=== PATIENT | female | born 1960 | race African-American/Black ===

== ENCOUNTER 2016-07-31 20:03 | Emergency (ER) | payer SELFPAY ==
[2016-07-31 20:21] VITALS: BMI 33.0
--- NOTE | 2016-07-31 22:20 | DR.GENAD ---
HPI - PCP Primary Care Physician: nfd - Complaint/Symptoms Chief Complaint Doctors Comments: Patient presents with c/o feet swelling, noticed today. She works at [employer] denies a history of CHF or pulmonary edema. Denies use of cigarettes. Chief Complaint:: feet started swelling noticed it today - Source History Provided: Patient - Mode of Arrival Mode of Arrival: Ambulatory - Timing Onset of Chief Complaint: 07/31/16 PMH - PMH Past Medical History: Yes Past Medical History: Arthritis, Migraines, Headaches Past Surgical History: Yes Surgical History: Hysterectomy Past Surgical History Comment: exploratory surgery on breast - Family History History of Family Medical Conditions: No (unknown) Family Medical History: Cancer - Social History Does patient currently use any type of tobacco product: No Have you used tobacco products in the last 12 months: No Type of Tobacco Use: None Does any household member use tobacco: No Alcohol Use: Rarely Do you use any recreational Drugs:: No Lives With: Alone Lives Where: Home - infectious screening In the last 2 months have you had wt loss of >10#?: NO Have you had fever, night sweats or hemotysis?: No Have you traveled outside the country in the last 6 months?: No Isolation: Standard ROS - Review of Systems Constitutional: No Symptoms Reported Eyes: No Symptoms Reported ENTM: No Symptoms Reported Respiratoy: No Symptoms Reported Cardiovascular: No Symptoms Reported Gastrointestinal/Abdominal: No Symptoms Reported Genitourinary: No Symptoms Reported Neurological: No Symptoms Reported Musculoskeletal: No Symptoms Reported, Foot (jordy,a) Integumentary: No Symptoms Reported Hematologic/Lymphatic: No Symptoms Reported Endocrine: No Symptoms Reported Psychiatric: No Symptoms Reported All Other Systems: Reviewed and Negative PE - Vital Signs Vitals: Temperature 98.5 F Pulse Rate 73 Respiratory Rate 20 Blood Pressure 133/81 O2 Sat by Pulse Oximetry 99 - General Limitations: No Limitations General Appearance: Alert, In No Apparent Distress - Head Head Exam: Normal Inspection, Atraumatic - Eyes Eye exam: Normal Appearance, PERRL, EOMI - ENT ENT Exam: Normal Exam External Ear Exam: Normal External Inspection TM/Canal Exam: Bilateral Normal Nose Exam: Normal Nose Exam Mouth Exam: Normal Inspection Throat Exam: Normal Inspection - Neck Neck Exam: Normal Inspection - Chest Chest Inspection: Normal Inspection - Respiratory Respiratory Exam: Normal Lung Sounds Bilat Respiratory Exam: Bilateral Clear to Auscultation - Cardiovascular Cardiovascular Exam: Regular Rate, Normal Rhythm - Abdominal Exam Abdominal Exam: Normal Inspection Abdominal Tenderness: negative: RUQ, RLQ, LUQ, LLQ, Epigastrium, Suprapubic, Diffuse, Mild, Moderate, Severe, Other - Extremities Extremities Exam: Edema (1+ lower extremity) - Back Back Exam: Normal Inspection, Full ROM - Neurologic Neurological Exam: Alert, Oriented X3, CN II-XII Intact - Skin Skin Exam: Warm, Dry, Intact ROR - Labs Reviewed Result Diagrams: 07/31/16 22:07/31/16 Laboratory: WBC 4.8 X10^3/uL (3.6-10.0) 07/31/16: RBC 4.30 X10^6/uL (3.5-5.4) 07/31/16 Hgb 12.3 g/dL (12.0-16.0) 07/31/16: Hct 36.7 % (36.0-47.0) 07/31/16: MCV 85.4 fL (80.0-100.0) 07/31/16: MCH 28.6 pg (27.0-34.0) 07/31/16: MCHC 33.5 g/dL (33.0-35.0) 07/31/16 RDW 13.2 % (11.6-16.5) 07/31/16 Plt Count 256 X10^3/uL (150.0-450.0) 07/31/16 MPV 8.4 fL (7.4-11.0) 07/31/16: Neut % 49.2 % (42.0-75.0) 07/31/16: Lymph % 38.8 % (21.0-51.0) 07/31/16: Wise % 9.6 % (0.0-13.0) 07/31/16 Eos % 1.5 % (0.9-2.9) 07/31/16 Baso % 0.9 % (0.2-1.0) 07/31/16 Neut # 2.4 x10^3/uL (2.2-4.8) 07/31/16: Lymph # 1.9 X10^3/uL (1.3-2.9) 07/31/16: Wise # 0.5 x10^3/uL (0.3-0.8) 07/31/16 22: Eos # 0.1 x10^3/uL (0.0-0.2) 07/31/16: Baso # 0.0 X10^3/uL (0.0-0.1) 07/31/16: Absolute Nucleated RBC 0.0 /100WBC 07/31/16 22: Sodium 148 mmol/L (136-145) H 07/31/16: Corrected Sodium TNP 07/31/16: Potassium 3.4 mmol/L (3.5-5.1) L 07/31/16: Chloride 110 mmol/L (98-107) H 07/31/16: Carbon Dioxide 29.0 mmol/L (21-32) 07/31/16: BUN 14 mg/dL (7-18) 07/31/16: Creatinine 0.77 mg/dL (0.55-1.02) 07/31/16: Est GFR (MDRD) Af Amer > 60 (>60) 07/31/16: Est GFR (MDRD) Non-Af > 60 (>60) 07/31/16: Glucose 95 mg/dL (65-99) 07/31/16: Calcium 8.9 mg/dL (8.5-10.1) 07/31/16: Corrected Calcium TNP 07/31/16: Total Bilirubin 0.20 mg/dL (0.2-1.0) 07/31/16: AST 13 Units/L (15-37) L 07/31/16: ALT 20 Units/L (12-78) 07/31/16: Alkaline Phosphatase 59 Units/L (46-116) 07/31/16: Total Protein 7.4 g/dL (6.4-8.2) 07/31/16: Albumin 3.5 g/dL (3.4-5.0) 07/31/16 22:27 Globulin 3.9 g/dL (2.5-4.5) 07/31/16 22:27 Albumin/Globulin Ratio 0.9 Ratio (1.1-2.1) L 07/31/16 22:27 - XRAY XRAY Interpreted by: Radiologist (The lungs are clear and the lung volumes are within normal limits. No pleural effusion or pneumothorax. The cardiac silhouette is mildly enlarged and there is central vascular congestion. The regional skeleton is intact. Impression: There is mild cardiomegaly and central vascular congestion.) - Diagnosis Discharge Problem: Mild cardiomegaly CHF (congestive heart failure) Qualifiers: Congestive heart failure type: unspecified congestive heart failure type Congestive heart failure chronicity: acute Qualified Code(s): I50.9 - Heart failure, unspecified - Discharge Plan Condition: Stable - Follow ups/Referrals Follow ups/Referrals: NFD,None [Primary Care Provider] - 3 days - Instructions
[2016-07-31 22:37] LABS: BASOPHILS % (AUTO) 0.9 % (0.2-1.0); EOSINOPHILS # (AUTO) 0.1 x10^3/uL (0.0-0.2); EOSINOPHILS % (AUTO) 1.5 % (0.9-2.9); HEMATOCRIT 36.7 % (36.0-47.0); HEMOGLOBIN 12.3 g/dL (12.0-16.0); LYMPHOCYTES # (AUTO) 1.9 X10^3/uL (1.3-2.9); LYMPHOCYTES % (AUTO) 38.8 % (21.0-51.0); MEAN CORPUSCULAR HEMOGLOBIN 28.6 pg (27.0-34.0); MEAN CORPUSCULAR HGB CONC 33.5 g/dL (33.0-35.0); MEAN CORPUSCULAR VOLUME 85.4 fL (80.0-100.0); MEAN PLATELET VOLUME 8.4 fL (7.4-11.0); MONOCYTES # (AUTO) 0.5 x10^3/uL (0.3-0.8); MONOCYTES % (AUTO) 9.6 % (0.0-13.0); NEUTROPHILS # (AUTO) 2.4 x10^3/uL (2.2-4.8); NEUTROPHILS % (AUTO) 49.2 % (42.0-75.0); PLATELET COUNT 256 X10^3/uL (150.0-450.0); RED CELL DISTRIBUTION WIDTH 13.2 % (11.6-16.5); WHITE BLOOD COUNT 4.8 X10^3/uL (3.6-10.0)
[2016-07-31 22:48] LABS: ALANINE AMINOTRANSFERASE 20 Units/L (12-78); ALBUMIN 3.5 g/dL (3.4-5.0); ALKALINE PHOSPHATASE 59 Units/L (46-116); ASPARTATE AMINO TRANSFERASE 13 Units/L (15-37); BLOOD UREA NITROGEN 14 mg/dL (7-18); CALCIUM 8.9 mg/dL (8.5-10.1); CHLORIDE 110 mmol/L (98-107); CREATININE 0.77 mg/dL (0.55-1.02); GLUCOSE 95 mg/dL (65-99); SODIUM 148 mmol/L (136-145); TOTAL PROTEIN 7.4 g/dL (6.4-8.2); eGFR BLACK RACES > 60 (>60); eGFR NON BLACK RACES > 60 (>60)
--- NOTE | 2016-07-31 23:14 | RAD ---
EXAM: Chest X-ray INDICATION: Foot swelling COMPARISION: No prior TECHNIQUE: Single view FINDINGS: The lungs are clear and the lung volumes are within normal limits. No pleural effusion or pneumothor ax. The cardiac silhouette is mildly enlarged and there central vascular congestion. The regional s keleton is intact. IMPRESSION: There is mild cardiomegaly and central vascular congestion. Reported By:
[2016-08-01] MEDS ORDERED: K-DUR TAB 20 MEQ PO ONE ×2 (00:11→00:15)
[2016-08-01 00:28] LABS: BILIRUBIN,URINE NEGATIVE (NEGATIVE); BLOOD/HEMOGLOBIN,URINE 2+ (NEGATIVE); GLUCOSE, URINE NEGATIVE (NEGATIVE); KETONES,URINE NEGATIVE (NEGATIVE); LEUKOCYTE ESTERASE ,URINE 1+ (NEGATIVE); NITRITES,URINE NEGATIVE (NEGATIVE); PROTEIN,URINE NEGATIVE (NEGATIVE); UROBILINOGEN,URINE NORMAL (NORMAL)
[2016-08-01 00:38] VITALS: BP 133/92
[2016-08-01 00:45] LABS: APPEARANCE,URINE CLEAR (CLEAR); BACTERIA,URINE NEGATIVE /HPF (NEGATIVE); COLOR,URINE YELLOW (YELLOW); SQUAMOUS EPITHELIAL CELL,UR FEW /HPF (NEGATIVE)
== END 2016-08-01 00:50 | disposition home or self-care (01) ==
LOC: ER 20:03
DX: I50.9 Heart failure, unspecified (principal); I51.7 Cardiomegaly
CPT/HCPCS: 36415; 71010; 80053; 81001; 85025; 99282; 99283